=== PATIENT | female | born 2000 | race Caucasian/White ===

== ENCOUNTER 2021-08-12 03:44 | Emergency (ER) | payer SELFPAY ==
[~2021-08-12] VITALS: Ht 162.5 cm; Wt 73.2 kg
[2021-08-12] MEDS ORDERED: KETOROLAC 60 MG/2 ML VIAL IM ONE (04:15)
[2021-08-12] MEDS ORDERED: ORPHENADRINE 60 MG/2 ML (NORFLEX) AMP (ED ONLY) IM ONE (04:15)
[2021-08-12] MEDS ORDERED: CYCL10TA25 PO (04:58)
--- NOTE | 2021-08-12 04:58 | ED Headache ---
General Chief Complaint: Head/Cervical Problems Stated Complaint: NECK PAIN Nursing Triage Note: Patient arrival per POV to ED reporting pain on the back of the neck tightening muscles and causing some tension headaches. Neck pain started 1800 last night but reports headache since Sunday r/t tight muscles. Denies recent injury or seizure. Driven to ED by Cris' Source: patient Exam Limitations: no limitations History of Present Illness Date Seen by Provider: Aug 12, 2021 Time Seen by Provider: 03:57 Initial Comments This 21-year-old young lady presents to the emergency room with complaints of neck pain and tightness with intense headache. Headache has been for about 2 days and neck pain started last night. She has taken Tylenol but has not tried any other treatments. She reports history of epilepsy but no recent seizures. She states pain presently is 10 out of 10 but stated level of pain does not match demeanor. Allergies and Home Medications Allergies Coded Allergies: No Known Drug Allergies (Unverified , 08/12/21) Patient Home Medication List Home Medication List Reviewed: Yes Cyclobenzaprine HCl (Cyclobenzaprine HCl) 10 Mg Tablet, 10 MG PO Q8H PRN for SPASMS Prescribed by: MARYELLEN KENNEY on 08/12/21 0458 Review of Systems Review of Systems Constitutional: no symptoms reported Eyes: No Symptoms Reported Ears, Nose, Mouth, Throat: no symptoms reported Respiratory: no symptoms reported Cardiovascular: no symptoms reported Gastrointestinal: no symptoms reported Genitourinary: no symptoms reported Musculoskeletal: see HPI Skin: no symptoms reported Psychiatric/Neurological: See HPI Past [id number] Hx Patient Social History Tobacco Use?: Yes Tobacco type used: Cigarettes Smoking Status: Current Someday Smoker Smokeless Tobacco Frequency: Never a User Use of E-Cig and/or Vaping Apolinar: Never a User Substance use?: No Alcohol Use?: Yes Alcohol Frequency: Once in a while Immunizations Up To Date Influenza Vaccine Up-to-Date: No; Not Current Past Medical History Surgery/Hospitalization HX: Epileptic seizures (not on medication) Surgeries: No Respiratory: No Cardiac: No Neurological: Yes Seizure Disorder : No Reproductive Disorders: No (Nexplanon) Genitourinary: No Gastrointestinal: No Musculoskeletal: No Endocrine: No HEENT: No Cancer: No Psychosocial: No Integumentary: No Physical Exam Vital Signs Vital Signs - First Documented 08/12/21 03:56 Temp 36.1 Pulse 79 Resp 16 B/P (MAP) 137/96 (110) Pulse Ox 100 O2 Delivery Room Air Capillary Refill : Less Than 3 Seconds Height, Weight, BMI Height: '" Weight: lbs. oz. kg; 27.00 BMI Method: General Appearance: WD/WN, no apparent distress HEENT: PERRL/EOMI, normal ENT inspection Neck: normal inspection, other (Muscle tension and tenderness in the superior posterior neck) Cardiovascular: regular rate, rhythm, no edema, no murmur Respiratory: lungs clear, normal breath sounds, no respiratory distress Crainal Nerves: normal hearing, normal speech, PERRL Coordination/Gait: normal gait Motor/Sensory: no motor deficit, no sensory deficit Skin: normal color, warm/dry Progress/Results/Core Measures Results/Orders My Orders Orders - MARYELLEN WADDELL MD Ketorolac Injection (Toradol Injection) (08/12/21 04:15) Orphenadrine Inj (Ed Only) (Norflex Inje (08/12/21 04:15) Medications Given in ED Current Medications Medications Dose Ordered Sig/Tray Route Start Time Stop Time Status Last Admin Dose Admin Ketorolac Tromethamine 30 mg ONCE ONCE IM 08/12/21 04:15 08/12/21 04:16 DC 08/12/21 04:19 30 MG Orphenadrine Citrate 60 mg ONCE ONCE IM 08/12/21 04:15 08/12/21 04:16 DC 08/12/21 04:20 60 MG Vital Signs/I&O 08/12/21 08/12/21 03:56 04:19 Temp 36.1 36.1 Pulse 79 Resp 16 B/P (MAP) 137/96 (110) Pulse Ox 100 O2 Delivery Room Air Blood Pressure Mean: 110 Progress Progress Note : Progress Note Symptoms completely resolved with Toradol and Norflex injections. See discharge instructions for further discussion Departure Impression Primary Impression: Tension type headache Qualified Codes: G44.209 - Tension-type headache, unspecified, not intractable Additional Impression: Neck muscle spasm Disposition: 01 HOME, SELF-CARE Condition: Improved Departure-Patient Inst. Decision time for Depature: 04:56 Referrals: NO,LOCAL PHYSICIAN (PCP/Family) Primary Care Physician Patient Instructions: Tension Headache (DC) Add. Discharge Instructions: You may use ibuprofen up to 600 mg every 6 hours as needed and/or Tylenol (acetaminophen) up to 1000 mg every 6 hours as needed. Use Flexeril (cyclobenzaprine) as prescribed for tense or spasming muscles in your neck. You may also try gentle heat and gentle stretching. Drink plenty of clear liquids to stay well-hydrated. If symptoms persist, follow-up with your primary care provider. Return to the ER if symptoms worsen. All discharge instructions reviewed with patient and/or family. Voiced understanding. Scripts Cyclobenzaprine HCl (Cyclobenzaprine HCl) 10 Mg Tablet 10 MG PO Q8H PRN for SPASMS, #10 TAB 0 Refills Prov: MARYELLEN WADDELL MD 08/12/21 MARYELLEN WADDELL MD Aug 12, 2021 04:58
[2021-08-12 05:00] VITALS: BP 132/88
== END 2021-08-12 05:00 | disposition home or self-care (01) ==
LOC: EDBD 03:54 → ER FS 03:54
DX: G44.209 Tension-type headache, unspecified, not intractable (principal); M62.838 Other muscle spasm; F17.210 Nicotine dependence, cigarettes, uncomplicated
CPT/HCPCS: 99284